=== PATIENT | male | born 1995 | race Caucasian/White ===

== ENCOUNTER 2024-05-26 18:33 | Emergency (ER) | payer SELFPAY ==
[2024-05-26 18:34] VITALS: BP 120/86; PULSE 85; RESP 10; TEMP 36.3; O2SAT 100; BMI 27.6
[2024-05-26] MEDS: MethylPREDNISolone 125 MG/2 ML Vial IV (18:54)
[2024-05-26] MEDS: Famotidine 20 MG Tablet PO (18:54)
--- NOTE | 2024-05-26 19:13 | EX.ED.DYSGE1 ---
HPI History of Present Illness Chief Complaint: Allergic Reaction Narrative Narrative: 29-year-old male who denies significant past medical history presents with allergic type reaction that he has had just prior to arrival. His father relates history that patient was living in a house with mold. He moved back in with his parents, however he returned to the house with an building code inspector today. After he returned home, he states that he started to feel flush and reddened. He started sneezing a lot and had nasal congestion. He went outside and continue to sneeze. He developed bumps on his neck and that spread to his torso. He thought that he was having problems swallowing and that his throat was closing so he took 75 mg of Benadryl. He continued to have symptoms and was brought in by EMS. He denies any new lotions or soaps, no new laundry detergent. This is never happened to him previously. [facility] Home Medications ?Medication ?Instructions ?Recorded ?Last Taken ?Type famotidine 20 mg tablet (Pepcid) 20 mg PO DAILY #7 tabs 05/26/24 Unknown Rx prednisone 20 mg tablet 40 mg (2 x 20 mg) PO DAILY #14 tabs 05/26/24 Unknown Rx Allergy/AdvReac Type Severity Reaction Status Date / Time No Known Allergies Allergy Verified 05/26/24 18:39 Surgical History (Updated 05/26/24 @ 18:39 by Alysha Gomes) History of appendectomy Social History (Updated 05/26/24 @ 18:39 by Alysha Gomes) household members: none housing: house Smoking Status: Never smoker ROS ROS ED ROS Narrative Review of systems positive for sensation of throat closing. Sneezing. Difficulty breathing. Developed hives on neck and some on torso. Denies feeling short of breath throughout all of symptoms. EXAM Physical Exam Narrative Exam Narrative: GCS 15. ABCs intact. HEENT examination grossly unremarkable. Airway patent. No drooling or trismus. No stridor. Cardiovascular examination feels a regular rate and rhythm. Lungs are clear to auscultation bilaterally, no wheezing, moving a good amount of air. Speaking in full sentences. Abdomen is soft and nontender without guarding or rebound. Neurological examination nonfocal, nonlateralizing. There appear to be a few hives on the anterior aspect of his neck. There may be some on his upper chest as well. Const Vital Signs: 05/26/24 18:34 05/26/24 19:34 05/26/24 20:00 Temperature 97.3 F L Temperature Source Oral Pulse Rate 85 84 84 Respiratory Rate 10 L 16 16 Blood Pressure 120/86 H 114/71 110/71 Blood Pressure Mean 97 85 84 Pulse Ox 100 98 100 Oxygen Delivery Method Room Air MDM MDM MDM Narrative Medical decision making narrative: Differential diagnosis includes but not limited to anaphylaxis versus allergic reaction versus idiopathic hives. Patient is already taken Benadryl and is showing improvement. Once again, his father relates history that he was exposed to mold again today. I do not feel epinephrine is indicated. He is not hypotensive and his pulse ox is 100% on room air. As he has already taken diphenhydramine, he was told to only take 50 mg every 6 hours, I added Solu-Medrol intravenously and Pepcid orally. He will be observed in the emergency department for any delayed type reaction. Upon repeat examination at approximately 2024, his hives have improved. He is resting comfortably on the cot with the head of the bed at approximately 45 degrees. The hives on his arms and on his neck have resolved. At this point in time, I feel he be discharged to follow-up. He was told to take no more than a total of 50 mg at a time of Benadryl every 6 hours. I wrote him a prescription for a steroid burst of prednisone for 40 mg for the next 7 days as well as a daily Pepcid of 20 mg. He was referred to a primary care provider and told he may need referral to an laborer construction or leak gang as well. Return instructions to the emergency department were reviewed. Disposition is discharged home in stable condition. Discharge Plan Triage Chief Complaint: Allergic Reaction ED Provider: Jose Alfredo Sanchez Dx/Rx/DC Orders Clinical Impression: Allergic reaction, Hives Instructions: ED General Allergic Reactions, ED Hives (Adult) Prescriptions: New prednisone 20 mg tablet 40 mg PO DAILY Qty: 14 0RF famotidine [Pepcid] 20 mg tablet 20 mg PO DAILY Qty: 7 0RF Primary Care Provider: Care Physician,No Primary Referrals: Mckay Guerrier MD [Med Staff - Active Staff] - 3-5 Days if not improving Care Physician,No Primary [Primary Care Provider] - Activity Restrictions/Additional Instructions: You can continue Benadryl 25 to 50 mg maximum every 6 hours as needed for hives. Take the steroid burst starting tomorrow for 7 days. Take a daily Pepcid as well for 7 days. Follow-up with your primary care provider. You may need referral to an slab lifting supervisor. Return to the emergency department with sensation of throat closing, increased hives, difficulty swallowing or breathing, new or worsening symptoms. Print Language: [place]
[2024-05-26 19:34] VITALS: BP 114/71; PULSE 84; RESP 16; O2SAT 98
[2024-05-26 20:00] VITALS: BP 110/71; PULSE 84; RESP 16; O2SAT 100
[2024-05-26 20:42] VITALS: BP 110/71; PULSE 84; RESP 16; TEMP 36.6; O2SAT 100
== END 2024-05-26 20:42 | disposition home or self-care (01) ==
PROVIDERS: Emergency Provider Emergency Medicine; Referring Provider Emergency Medicine; Visit Provider Emergency Medicine
DX: L50.0 Allergic urticaria (principal); Z77.120 Contact with and (suspected) exposure to mold (toxic)
CPT/HCPCS: 96374; 99284